=== PATIENT | male | born 1975 | race African-American/Black ===

== ENCOUNTER 2020-05-28 00:06 | Emergency (ER) | payer MEDICAID ==
[~2020-05-28] VITALS: Ht 185.4 cm; Wt 79.4 kg
--- NOTE | 2020-05-28 00:20 | NUR ---
Syed cervantes in EDM - 05/28/20 at 0052 by [facility] ED Nurse Note: blood collected and sent to lab
[2020-05-28 00:22] VITALS: BP 118/76
--- NOTE | 2020-05-28 00:22 | NUR ---
ED Nurse Note: Pt walked into ED from home d/t persistent nausea and vomiting for 2 days now. Pt denies ingestion of food, denies diarrhea, denies fever and chills. Pt is AAOx4, breathing even and unlabored. Vital signs are stable.
--- NOTE | 2020-05-28 00:25 | NUR ---
ED Nurse Note: blood collected and sent to lab
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
[2020-05-28] MEDS ORDERED: HYDROmorphone 1mg/ml Carpuject IVP ONE (00:30)
--- NOTE | 2020-05-28 00:37 | NUR ---
ED Nurse Note: ct scan special procedures technologist at bedside
[2020-05-28 00:41] LABS: BASOPHILS % (AUTO) 0.9 % (0.0-2.0); HEMOGLOBIN 13.4 G/DL (14.2-18.0); LYMPHOCYTES % (AUTO) 22.5 % (20.0-45.0); MEAN CORPUSCULAR VOLUME 89 FL (80-99); NEUTROPHILS % (AUTO) 63.6 % (45.0-75.0); PLATELET COUNT 221 K/UL (150-450); RED BLOOD COUNT 4.28 M/UL (4.70-6.10); RED CELL DISTRIBUTION WIDTH 13.7 % (11.6-14.8); WHITE BLOOD COUNT 5.5 K/UL (4.8-10.8)
--- NOTE | 2020-05-28 00:43 | NUR ---
ED Nurse Note: pt went down to CT via haroon
[2020-05-28 00:49] LABS: ANION GAP 5 mmol/L (5-15); BLOOD UREA NITROGEN 13 mg/dL (7-18); CALCIUM 8.1 MG/DL (8.5-10.1); CARBON DIOXIDE 30 MMOL/L (21-32); CHLORIDE 103 MMOL/L (98-107); CREATININE 1.1 MG/DL (0.55-1.30); POTASSIUM 4.1 MMOL/L (3.5-5.1); SODIUM 138 MMOL/L (136-145)
[2020-05-28 00:53] LABS: ALANINE AMINOTRANSFERASE 16 U/L (12-78); ALBUMIN 3.2 G/DL (3.4-5.0); ALBUMIN/GLOBULIN RATIO 0.8 (1.0-2.7); ALKALINE PHOSPHATASE 94 U/L (46-116); ASPARTATE AMINO TRANSFERASE 13 U/L (15-37); BILIRUBIN,TOTAL 0.3 MG/DL (0.2-1.0)
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
--- NOTE | 2020-05-28 01:38 | Diagnostic Imaging Report ---
EXAM: CT Abdomen and Pelvis Without Intravenous Contrast CLINICAL HISTORY: ABD PAIN TECHNIQUE: Axial computed tomography images of the abdomen and pelvis without intravenous contrast. CTDI is 3.60 mGy and DLP is 185.00 mGy-cm. One or more of the following dose reduction techniques were used: automated exposure control, adjustment of the mA and/or kV according to patient size, use of iterative reconstruction technique. COMPARISON: No relevant prior studies available. FINDINGS/IMPRESSION: Significantly limited exam due to lack of mesenteric fat, making evaluations of the abdominal organs difficult. Dilated loops of small bowel are seen throughout the abdomen concerning for small bowel obstruction versus ileus. Transition point not well visualized. Large volume of stool throughout the colon. Prior bowel surgery. Liver, gallbladder, kidneys are intact. Mild Left basilar atelectasis.
[2020-05-28 01:45] VITALS: BP 128/74
--- NOTE | 2020-05-28 02:03 | NUR ---
ED Nurse Note: Pt drank barium solution will wait 1.5 hours for KUB.
[2020-05-28 02:50] VITALS: BP 123/76
--- NOTE | 2020-05-28 03:27 | NUR ---
ED Nurse Note: management technician at bedside performing KUB
--- NOTE | 2020-05-28 03:36 | NUR ---
ED Nurse Note: pt aware still need urine sample, unable to void at the moment. Refuses straight cath.
--- NOTE | 2020-05-28 03:45 | Diagnostic Imaging Report ---
EXAM: XR Abdomen, 2 Views CLINICAL HISTORY: ABD PAIN TECHNIQUE: Frontal view of the abdomen/pelvis with upright view of the abdomen. COMPARISON: 05/28/2020 IMPRESSION: Dilated loops of bowel are again seen suspicious for small bowel obstruction versus ileus.
[2020-05-28 03:49] VITALS: BP 115/76
[2020-05-28] MEDS ORDERED: HYDROCODON-ACE1 EA15 ORAL (03:51)
[2020-05-28] MEDS ORDERED: LACTULOSE20 GM/301 ORAL (03:51)
[2020-05-28 04:20] VITALS: BP 121/76
--- NOTE | 2020-05-28 04:20 | NUR ---
ER DISCHARGE NOTE: Patient is cleared to be discharged per ERMD, pt is aox4, on room air, with stable vital signs. pt was given dc and paper prescriptions with instructions to return if not better in 12-24 hrs and see PMD in 2-3 days, pt was able to verbalize understanding, pt id band and iv site removed without complications. pt is able to ambulate with steady gait. pt took all belongings.
== END 2020-05-28 04:20 | disposition home or self-care (01) ==
LOC: EMR 00:21
DX: R10.84 Generalized abdominal pain (principal); K59.00 Constipation, unspecified; K56.7 Ileus, unspecified; Z88.8 Allergy status to other drugs, medicaments and biological substances
CPT/HCPCS: 73130; 74018; 74176; 80053; 83690; 85025; 96361; 96374; 96375; J1170; J2405; J7030; Z7502; 99284